=== PATIENT | female | born 2000 | race African-American/Black ===

== ENCOUNTER 2024-10-30 22:02 | Emergency (ER) | payer OTHER ==
[2024-10-30 22:08] VITALS: BP 109/70; PULSE 89; RESP 18; TEMP 98; BMI 19.9
[2024-10-30 23:12] LABS: ABSOLUTE IMMATURE GRANULOCYTES 0.01 x10^3/uL (0.0-0.031); BASOPHILS # 0.05 x10^3/uL (0.01-0.08); EOSINOPHIL % 1.1 % (0.7-5.8); EOSINOPHILS # 0.07 x10^3/uL (0.04-0.36); HEMATOCRIT 37.9 % (34.1-44.9); HEMOGLOBIN 12.1 g/dL (11.2-15.7); MCHC 31.9 g/dl (32.2-35.5); MEAN CELL VOLUME 82.9 fl (79.4-94.8); MEAN PLT VOLUME 10.8 fl (9.4-12.3); MONOCYTE # 0.45 x10^3/uL (0.24-0.86); MONOCYTE % 7.2 % (4.7-12.5); PLATELET COUNT 252 x10^3/uL (182-369); RDW 15.3 % (12.1-16.5)
[2024-10-30] MEDS ORDERED: ACETAMINOPHEN INJECTION 100 ML ONE (23:22)
[2024-10-30 23:30] LABS: POTASSIUM 3.3 mmol/L (3.5-5.1)
[2024-10-30] MEDS: ACETAMINOPHEN 1000 MG/100 ML BAG IVPB ONE (23:30)
[2024-10-30 23:32] LABS: CALCIUM 9.7 mg/dL (8.5-10.1)
[2024-10-30 23:33] LABS: ALBUMIN 4.3 g/dl (3.4-5.0); BLOOD UREA NITROGEN 14.7 mg/dL (7-18)
[2024-10-30 23:36] LABS: CREATININE 0.7 mg/dL (0.55-1.3)
[2024-10-30 23:37] LABS: BILIRUBIN,TOTAL 0.7 mg/dL (0.2-1); TOT PROT 8.2 g/dl (6.4-8.2)
[2024-10-31 20:27] LABS: HCV DIAGNOSTIC IN-HOUSE W/RFLX NON-REACTIVE (NONREACTIVE); HIV INTERPRETATION NEGATIVE (NEGATIVE)
== END 2024-10-31 02:12 | disposition home or self-care (01) ==
LOC: JER 22:02
PROC: 3E033NZ Introduction of Analgesics, Hypnotics, Sedatives into Peripheral Vein, Percutaneous Approach (ICD-10-PCS; principal; 2024-10-30)
DX: S10.93XA Contusion of unspecified part of neck, initial encounter (principal); R13.10 Dysphagia, unspecified; T71.194A Asphyxiation due to mechanical threat to breathing due to other causes, undetermined, initial encounter
CPT/HCPCS: 36415; 70498-TC; 80053; 84703; 85025; 86803; 87389; 99285-25